=== PATIENT | female | born 1970 | race Caucasian/White ===

== ENCOUNTER 2022-12-03 11:15 | Outpatient (CLI) | payer BC, MEDICAID, SELFPAY ==
--- NOTE | 2022-12-03 11:28 | MM_ITS ---
WS: [id number] BILATERAL 3D TOMOSYNTHESIS DIGITAL SCREENING MAMMOGRAPHY WITH CAD CLINICAL INFORMATION: SCREENING HISTORY: Screening mammogram. No current complaints. COMPARISON: Baseline TECHNIQUE: Bilateral CC and MLO views. FINDINGS: Scattered fibroglandular densities bilaterally. Nodularity deep to the LEFT areola along the posterio r nipple line measuring 3 to 4 mm. Recommend LEFT diagnostic mammography and ultrasound for further e valuation. RIGHT breast is unremarkable. MM/[place] [id number] IMPRESSION: BI-RADS: 0-Incomplete: Need additional imaging evaluation FOLLOW UP: Need Additional Imaging Recommend LEFT diagnostic mammography and ultrasound for further evaluation.
== END 2022-12-03 11:16 | disposition home or self-care (01) ==
PROVIDERS: Family Provider Obstetrics & Gynecology; PCP Obstetrics & Gynecology; Visit Provider Family Medicine
DX: Z12.31 Encounter for screening mammogram for malignant neoplasm of breast (principal)
CPT/HCPCS: 77063; 77067

== ENCOUNTER 2022-12-29 14:51 | Outpatient (CLI) | payer BC, MEDICAID, SELFPAY ==
--- NOTE | 2022-12-29 14:56 | MM_ITS ---
WS: [id number] LEFT 3D TOMOSYNTHESIS DIGITAL MAMMOGRAPHY WITH CAD CLINICAL INFORMATION: ABNORMAL MAMMO HISTORY: Additional views COMPARISON: 12/03/2022 TECHNIQUE: 3 views of the left breast were obtained. FINDINGS: Scattered fibroglandular densities of the left breast. Previously described tiny nodular density emiliana g the posterior nipple line resolves today on the spot compression views. No new abnormalities. No suspicious focal mass, asymmetry, calcifications, or architectural distortion. No evidence of osvaldo gnancy. Recommend return to annual screening mammography IMPRESSION: MM/[place] [id number] BI-RADS: 2-Benign FOLLOW UP: 1 Year Follow-up Recommend return to annual screening mammography.
== END 2022-12-29 14:52 | disposition home or self-care (01) ==
PROVIDERS: PCP Family Medicine; Visit Provider Family Medicine
DX: R92.8 Other abnormal and inconclusive findings on diagnostic imaging of breast (principal)
CPT/HCPCS: 77061; G0279

== ENCOUNTER → 2023-03-03 17:32 | Outpatient (BNVA) | payer BC, MEDICAID, SELFPAY | PROVIDERS: PCP Family Medicine; Visit Provider Nurse Practitioner | DX: R39.9 Unspecified symptoms and signs involving the genitourinary system (principal); N30.01 Acute cystitis with hematuria | CPT/HCPCS: 81000 ==

== ENCOUNTER 2023-07-11 15:58 | Emergency (ER) | payer BC, MEDICAID, SELFPAY ==
[2023-07-11 16:04] VITALS: BP 135/80; PULSE 97; RESP 17; TEMP 36.5; O2SAT 98; BMI 39.1
--- NOTE | 2023-07-11 17:45 | USR_ITS ---
PROCEDURE INFORMATION: Exam: US Duplex Right Lower Extremity Veins, Limited Exam date and time: 07/11/2023 5:43 PM Age: 52 years old Clinical indication: Pain; Leg, lower; Right; Additional info: Pain swelling TECHNIQUE: Imaging protocol: Real-time duplex ultrasound of the right extremity with 2-D leonardo scale, color Doppler flow and spectral waveform analysis including responses to compression and other maneuvers (when performed) with image documentation. Limited exam was focused on the right lower extremity veins. COMPARISON: No relevant prior studies available. FINDINGS: Right deep veins: Heterogeneous, nearly occlusive to occlusive thrombus in the popliteal and peroneal veins. The common femoral, femoral, proximal profunda femoral and posterior tibial veins are patent without thrombus. Superficial veins: Greater saphenous vein at the saphenofemoral junction is patent without thrombus. Soft tissues: Unremarkable. US/[place] [id number] IMPRESSION: Heterogeneous, nearly occlusive to occlusive thrombus in the popliteal and peroneal veins.
[2023-07-11 18:39] VITALS: BP 129/73; PULSE 88; O2SAT 97
[2023-07-11] MEDS: apixaban 5 mg Tablet 10 MG PO (19:30)
[2023-07-11 19:33] VITALS: BP 129/73; PULSE 88; RESP 17; TEMP 36.5; O2SAT 97
--- NOTE | 2023-07-11 20:10 | W.ED.EXTPRO ---
Documented by User: HORTENCIA Sauer 07/11/23 20:20 HPI - Extremity Problem General: Chief complaint: Extremity Problem,Nontraumatic Stated complaint: Right leg swelling, tenderness Time Seen by Provider: 07/11/23 18:45 Source: patient Mode of arrival: ambulatory Limitations: no limitations History of Present Illness: Patient is a 52-year-old female presents the emergency department complaining of right lower extremity pain onset 1 day. 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 She reports throbbing and tenderness to the right lower extremity. It is made walking difficult for her. She reports that for the past 2 weeks she has not been very ambulatory due to a COVID infection, as well as being tired from caring for a family member. She reports a history of DVT/PE requiring anticoagulation back in 2011, which she says was due to an oral contraceptive. Currently, she denies any breathing difficulties, palpitations, dizziness or lightheadedness, and states that she feels nothing like she did when she had her PE. She denies any blood disorder such as factor V or protein C/S deficiencies and states that she has had this worked up before. Associated symptoms: Deny chest pain, fever(s) or rash Review of Systems General: Reports: 10 or more systems reviewed and unremarkable except in HPI and below Const: Denies: fever(s), chills or fatigue Eyes: Denies: change in vision ENMT: Denies: throat pain, ear or mastoid pain or nasal discharge Card: Denies: chest pain, palpitations, irregular heart rhythm, swelling of feet/ankles or lightheadedness Resp: Denies: dyspnea, productive cough or wheezing GI: Denies: abdominal pain, nausea, vomiting, diarrhea or constipation : Denies: flank pain, difficulty voiding, dysuria or urinary frequency Musc: Reports: extremity pain (RLE) and extremity swelling (RLE); Denies: neck pain, back pain or joint pain Skin/Breast: Denies: rash Neuro: Denies: headache(s), numbness in extremities or weakness in extremities Physical Exam Const: COMMON NORMALS: no acute distress, patient oriented x3 and no limitations GENERAL APPEARANCE: cooperative, comfortable and well developed ORIENTATION/CONSCIOUSNESS: Yes awake, Yes oriented to person, Yes oriented to place and Yes oriented to time HENMT: COMMON NORMALS: normocephalic, atraumatic and hearing grossly normal bilaterally HEAD & SCALP: normocephalic and atraumatic Eye: COMMON NORMALS: Equal, round and reactive pupils present, EOMs intact bilaterally and conjunctivae normal CONJUNCTIVA: Yes conjunctivae normal PUPIL: Yes Equal, round and reactive pupils present Neck/C-Spine: COMMON NORMALS: full ROM, supple and no JVD Resp: COMMON NORMALS: normal respiratory effort, No retractions, No use of accessory muscles and clear to auscultation bilaterally AUSCULTATION: clear to auscultation bilaterally OTHER: Lung sounds are clear and symmetrical throughout all conte. Cardio: COMMON NORMALS: no JVD, regular rate, regular rhythm, No clicks present (Cardio), No murmurs present (Cardio) and No rub (Cardio) RATE: regular rate RHYTHM: regular rhythm GI: COMMON NORMALS: Normal to inspection, nondistended, normoactive bowel sounds present, Soft to palpation and non-tender AUSCULTATION: Yes normoactive bowel sounds PALPATION: Yes Soft to palpation RECTAL EXAM: deferred Extremity: COMMON NORMALS: normal to inspection, full ROM and capillary refill normal OTHER: Right lower extremity is mildly swollen and tender to the touch at the posterior aspect of the right calf. Positive Homans' sign. No palpable cord noted at the popliteal fossa. Dorsalis pedis and posterior tibial pulses are present. Neuro: COMMON NORMALS: patient oriented x3, moves all extremities, no focal motor deficits and no sensory deficits noted SENSORIUM/ORIENTATION: Yes oriented to person, Yes oriented to place and Yes oriented to time Psych: COMMON NORMALS: mental status grossly normal and Normal thought process present THOUGHT PROCESS: Normal thought process present Skin: COMMON NORMALS: no rashes or lesions noted GENERAL SKIN EXAM: no rashes or lesions noted Course Vital Signs: Vital signs: Vital Signs Temperature 97.7 F 07/11/23 19:33 Pulse Rate 88 07/11/23 19:33 Respiratory Rate 17 07/11/23 19:33 Blood Pressure 129/73 07/11/23 19:33 Pulse Oximetry 97 07/11/23 19:33 Oxygen Delivery Me thod Room Air 07/11/23 18:39 MDM - Extremity (Nontraumatic) Medical Decision Making This patient was seen and evaluated in the emergency room today for 1 day of right lower extremity swelling and pain. Patient compares the pain to that of a DVT which she had back in 2011. This also resulted in a pulmonary embolus at that time, however patient is not exhibiting any of the respiratory symptoms that she was at that time. Patient's vitals are normal, including normal heart rate, normal blood pressure, and O2 saturation of 100% upon examination in the room. Patient has been sedentary for the past couple of weeks due to a COVID infection, states that her prior DVT was due to an oral contraceptive. She is not currently on any blood thinners. Patient further denies any heart racing, painful respirations, dizziness or lightheadedness, or any other concerning symptoms for PE. Duplex ultrasound right lower extremity demonstrated occlusions in the popliteal and peroneal veins. Examination of peripheral pulses showed symmetrical DP/PT pulses. Due to the findings of ultrasound, and lack of clinical findings suspicious for PE, I believe patient can begin treatment with Eliquis, beginning with 10 mg twice a day for the first week and 5 mg twice a day thereafter. Patient will follow-up with her primary care provider to continue treatment. I discussed this plan with the patient and she agrees. Patient discharged home without any activity restrictions. Medical Records I reviewed the patient's medical records. Lab Data Radiology Impressions Venous Duplex 07/11/23 17:45 IMPRESSION: Heterogeneous, nearly occlusive to occlusive thrombus in the popliteal and peroneal veins. ADDENDUM: 07/11/231930 ADDENDUM: THIS REPORT CONTAINS FINDINGS THAT MAY BE CRITICAL TO PATIENT CARE. The findings were verbally communicated via telephone conference with HORTENCIA Berrios at 7:29 PM LINE DEPARTMENT SUPERVISOR on 07/11/2023. The findings were acknowledged and understood. All radiology interpretation(s) finalized by discharge Discharge Plan Discharge Patient Disposition: Home Clinical Impression: Deep vein thrombosis of lower extremity Qualifiers: Affected thrombotic vein of extremity: unspecified vein of extremity Chronicity: acute Laterality: right Qualified Code(s): I82.401 - Acute embolism and thrombosis of unspecified deep veins of right lower extremity Condition: Stable Prescriptions: New Eliquis 5 mg tablet 10 mg PO BID 21 Days Qty: 84 0RF Rx Instructions: Take 10mg (2 tabs) PO BID for 7 days, then take 5mg (1 tab) thereafter PO BID No Action escitalopram oxalate [Lexapro] 10 mg tablet 10 mg PO DAILY hydroxyzine HCl 10 mg tablet 10 mg PO TID PRN nitrofurantoin monohyd/m-cryst [Macrobid] 100 mg capsule 100 mg PO Q12H 7 Days Qty: 14 0RF Rx Instructions: must administer with a meal/food Discharge Orders: Discharge ED (Routine); Ordered 07/11/23 Ordered By: Milan Berrios Referrals: Nicolle Lemus DO [Primary Care Provider] - Discharge Diet: Usual diet Discharge Activity: Increase activity as tolerated Patient Instructions: Deep Vein Thrombosis Prevention (ED) Activity Restrictions/Additional Instructions: Take Eliquis as directed. 2 tablets twice a day for the first week, then 1 tablet twice a day thereafter. You have been given 3 weeks worth of pills, please follow-up with your primary care provider to extend your prescription. No activity restrictions. If you develop any shortness of breath, palpitations, or feeling that you are going to pass out, please return for further evaluation. Coding Level of Care Code ED Business Banking Manager for Chg Fwd Documented by User: Kike Calvert DO 07/13/23 06:44 HPI - Extremity Problem General: Chief complaint: Extremity Problem,Nontraumatic Stated complaint: Right leg swelling, tenderness Time Seen by Provider: 07/11/23 18:45 Course Vital Signs: Vital signs: Vital Signs Temperature 97.7 F 07/11/23 19:33 Pulse Rate 88 07/11/23 19:33 Respiratory Rate 17 07/11/23 19:33 Blood Pressure 129/73 07/11/23 19:33 Pulse Oximetry 97 07/11/23 19:33 Oxygen Delivery Me thod Room Air 07/11/23 18:39 MDM - Extremity (Nontraumatic) Medical Decision Making This patient was seen and evaluated in the emergency room today for 1 day of right lower extremity swelling and pain. Patient compares the pain to that of a DVT which she had back in 2011. This also resulted in a pulmonary embolus at that time, however patient is not exhibiting any of the respiratory symptoms that she was at that time. Patient's vitals are normal, including normal heart rate, normal blood pressure, and O2 saturation of 100% upon examination in the room. Patient has been sedentary for the past couple of weeks due to a COVID infection, states that her prior DVT was due to an oral contraceptive. She is not currently on any blood thinners. Patient further denies any heart racing, painful respirations, dizziness or lightheadedness, or any other concerning symptoms for PE. Duplex ultrasound right lower extremity demonstrated occlusions in the popliteal and peroneal veins. Examination of peripheral pulses showed symmetrical DP/PT pulses. Due to the findings of ultrasound, and lack of clinical findings suspicious for PE, I believe patient can begin treatment with Eliquis, beginning with 10 mg twice a day for the first week and 5 mg twice a day thereafter. Patient will follow-up with her primary care provider to continue treatment. I discussed this plan with the patient and she agrees. Patient discharged home without any activity restrictions. Chart reviewed and patient discussed with midlevel. Agree with assessment and plan. Lab Data Radiology Impressions Venous Duplex 07/11/23 17:45 IMPRESSION: Heterogeneous, nearly occlusive to occlusive thrombus in the popliteal and peroneal veins. ADDENDUM: 07/11/231930 ADDENDUM: THIS REPORT CONTAINS FINDINGS THAT MAY BE CRITICAL TO PATIENT CARE. The findings were verbally communicated via telephone conference with HORTENCIA Berrios at 7:29 PM LINE DEPARTMENT SUPERVISOR on 07/11/2023. The findings were acknowledged and understood. Discharge Plan Discharge Patient Disposition: Home Clinical Impression: Deep vein thrombosis of lower extremity Qualifiers: Affected thrombotic vein of extremity: unspecified vein of extremity Chronicity: acute Laterality: right Qualified Code(s): I82.401 - Acute embolism and thrombosis of unspecified deep veins of right lower extremity Condition: Stable Prescriptions: New Eliquis 5 mg tablet 10 mg PO BID 21 Days Qty: 84 0RF Rx Instructions: Take 10mg (2 tabs) PO BID for 7 days, then take 5mg (1 tab) thereafter PO BID No Action escitalopram oxalate [Lexapro] 10 mg tablet 10 mg PO DAILY hydroxyzine HCl 10 mg tablet 10 mg PO TID PRN nitrofurantoin monohyd/m-cryst [Macrobid] 100 mg capsule 100 mg PO Q12H 7 Days Qty: 14 0RF Rx Instructions: must administer with a meal/food Discharge Orders: Discharge ED (Routine); Ordered 07/11/23 Ordered By: Milan Berrios Referrals: Nicolle Lemus DO [Primary Care Provider] - Discharge Diet: Usual diet Discharge Activity: Increase activity as tolerated Patient Instructions: Deep Vein Thrombosis Prevention (ED) Activity Restrictions/Additional Instructions: Take Eliquis as directed. 2 tablets twice a day for the first week, then 1 tablet twice a day thereafter. You have been given 3 weeks worth of pills, please follow-up with your primary care provider to extend your prescription. No activity restrictions. If you develop any shortness of breath, palpitations, or feeling that you are going to pass out, please return for further evaluation. Coding Level of Care Code ED Business Banking Manager for Tj Villarreal
== END 2023-07-11 19:47 | disposition home or self-care (01) ==
PROVIDERS: Emergency Provider Physician Assistant; PCP Family Medicine
DX: I82.401 Acute embolism and thrombosis of unspecified deep veins of right lower extremity (principal)
CPT/HCPCS: 93971; 99284

== ENCOUNTER 2023-08-05 14:30 | Oncology outpatient (recurring) (ONCR) | payer BC, MEDICAID, SELFPAY ==
[2023-08-05 15:52] LABS: Basophils # 0.1 10^3/uL (0.0-0.1); Basophils % 0.9 %; Eosinophils # 0.1 10^3/uL (0.0-0.8); Eosinophils % 1.8 %; Hematocrit 41.1 % (36-47); Lymphocytes # 2.3 10^3/uL (0.8-4.8); Lymphocytes % 29.4 %; Mean Corpuscular HGB Conc 33.1 g/dL (30-55); Mean Corpuscular Hemoglobin 28.9 pg (27-33); Mean Corpuscular Volume 87.3 fl (85-98); Mean Platelet Volume 9.5 fL (7.4-10.4); Monocytes # 0.4 10^3/uL (0.2-0.9); Monocytes % 5.7 %; Neutrophils # 4.74 10^3/uL (1.8-7.7); Neutrophils % 61.9 %; Nucleated Red Blood Cells % 0 %; Platelet Count 259 10^3/cmm (157-399); Red Blood Count 4.71 10^6/uL (3.85-5.65); Red Cell Distribution Width 12.5 % (12.1-15.1); White Blood Count 7.66 10^3/uL (3.29-11.43)
[2023-08-05 16:15] LABS: Alanine Aminotransferase 32 U/L (0-33); Albumin Level 4.1 g/dL (3.5-5.2); Alkaline Phosphatase 71 U/L (35-105); Anion Gap 15.1 (5-19); Blood Urea Nitrogen 11 mg/dL (6-20); Calcium 9.3 mg/dL (8.5-10.5); Carbon Dioxide 24 mmol/L (22-29); Chloride 105 mmol/L (98-107); Creatinine Clr Calc Pharmacy 142.5342; Globulin 3.5 g/dL (1.3-4.6); Glucose 130 mg/dL (65-115); Osmolality Calculated 291 mOsm/kg (285-295); Potassium 4.1 mmol/L (3.5-5.1); Sodium 140 mmol/L (136-145); Total Bilirubin 0.3 mg/dL (0.15-1.2); Total Protein 7.6 g/dL (6.6-8.7)
[2023-08-05 16:21] LABS: INR 1.03 (0.8-1.2)
[2023-08-05 16:22] LABS: Aspartate Amino Transferase 26 U/L (0-32); Partial Thromboplastin Time 27.5 SECONDS (23.9-36.7)
[2023-08-05 16:25] LABS: D Dimer 0.47 ug/mLFEU (0-0.59)
[2023-08-12 00:01] LABS: Factor 5 Leiden Mutation NEGATIVE
[2023-08-12 02:41] LABS: PROTHROMBIN (FACTOR II) 20210G NEGATIVE
== END 2023-08-09 23:59 | disposition home or self-care (01) ==
PROVIDERS: PCP Family Medicine; Visit Provider Internal Medicine
DX: I82.409 Acute embolism and thrombosis of unspecified deep veins of unspecified lower extremity (principal)
CPT/HCPCS: 36415; 80053; 81241; 85025; 85210; 85378; 85610; 85730

== ENCOUNTER 2023-11-03 12:49 | Oncology outpatient (recurring) (ONCR) | payer BC, MEDICAID, SELFPAY ==
[2023-11-03 13:23] LABS: Basophils # 0.1 10^3/uL (0.0-0.1); Basophils % 0.7 %; Eosinophils # 0.2 10^3/uL (0.0-0.8); Eosinophils % 2.3 %; Hematocrit 42.5 % (36-47); Lymphocytes % 29.7 %; Mean Corpuscular HGB Conc 33.2 g/dL (30-55); Mean Corpuscular Hemoglobin 28.9 pg (27-33); Mean Corpuscular Volume 87.1 fl (85-98); Mean Platelet Volume 9.4 fL (7.4-10.4); Monocytes # 0.4 10^3/uL (0.2-0.9); Monocytes % 5.4 %; Neutrophils # 4.22 10^3/uL (1.8-7.7); Neutrophils % 61.6 %; Nucleated Red Blood Cells % 0 %; Platelet Count 267 10^3/cmm (157-399); Red Blood Count 4.88 10^6/uL (3.85-5.65); Red Cell Distribution Width 12.3 % (12.1-15.1); White Blood Count 6.86 10^3/uL (3.29-11.43)
[2023-11-03 13:50] LABS: Alanine Aminotransferase 31 U/L (0-33); Alkaline Phosphatase 72 U/L (35-105); Anion Gap 15.3 (5-19); Aspartate Amino Transferase 22 U/L (0-32); Blood Urea Nitrogen 11 mg/dL (6-20); Calcium 9.2 mg/dL (8.5-10.5); Carbon Dioxide 24 mmol/L (22-29); Chloride 107 mmol/L (98-107); Globulin 3.5 g/dL (1.3-4.6); Glomerular Filtration Rate 87.9 mL/min (90-130); Glucose 110 mg/dL (65-115); Osmolality Calculated 292 mOsm/kg (285-295); Potassium 5.3 mmol/L (3.5-5.1); Sodium 141 mmol/L (136-145); Total Bilirubin 0.4 mg/dL (0.15-1.2); Total Protein 7.5 g/dL (6.6-8.7)
[2023-11-03 13:53] LABS: D Dimer 0.38 ug/mLFEU (0-0.59)
== END 2023-11-08 23:59 | disposition home or self-care (01) ==
PROVIDERS: Internal Medicine; PCP Family Medicine; Visit Provider Nurse Practitioner Family
DX: I82.621 Acute embolism and thrombosis of deep veins of right upper extremity (principal)
CPT/HCPCS: 36415; 80053; 85025; 85378

== ENCOUNTER 2023-11-27 13:42 | Outpatient (CLI) | payer BC, MEDICAID, SELFPAY ==
--- NOTE | 2023-11-27 14:00 | USCV_ITS ---
Sydnee Marcos Age: 52 Gender: F : 1970 Exam Date: 11/27/2023 14:30 Ordering Phys: Jo-Ann Booker APRN Technologist: CT Exam Location: [facility] – [place] Indication: hx of dvt PROCEDURES: Venous duplex imaging was performed in only the right lower extremity. On the right side, the common femoral, superficial femoral, profunda femoral, popliteal, posterior tibial, greater saphenous veins and the peroneal trunk were identified and interrogated in the standard fashion. These veins were found to be easily compressible with spontaneous blood flow. No evidence of insufficiency or thrombus noted. FINDINGS: no dvt CONCLUSIONS No evidence of right lower extremity DVT. Cristóbal Murphy MD (Electronically Signed) Final Date: 27 November 2023 16:47 S
== END 2023-11-27 13:43 | disposition home or self-care (01) ==
LOC: RAD 13:43
PROVIDERS: PCP Family Medicine; Visit Provider Nurse Practitioner Family
DX: I82.401 Acute embolism and thrombosis of unspecified deep veins of right lower extremity (principal); Z86.718 Personal history of other venous thrombosis and embolism
CPT/HCPCS: 93971

== ENCOUNTER 2023-12-08 10:49 | Oncology outpatient (recurring) (ONCR) | payer BC, MEDICAID, SELFPAY ==
[2023-12-08 11:36] LABS: Anion Gap 16.3 (5-19); Blood Urea Nitrogen 11 mg/dL (6-20); Calcium 8.9 mg/dL (8.5-10.5); Carbon Dioxide 22 mmol/L (22-29); Chloride 107 mmol/L (98-107); Glomerular Filtration Rate 87.9 mL/min (90-130); Glucose 108 mg/dL (65-115); Osmolality Calculated 292 mOsm/kg (285-295); Potassium 4.3 mmol/L (3.5-5.1); Sodium 141 mmol/L (136-145)
== END 2023-12-09 23:59 | disposition home or self-care (01) ==
PROVIDERS: PCP Family Medicine; Visit Provider Nurse Practitioner Family
DX: E87.5 Hyperkalemia (principal)
CPT/HCPCS: 36415; 80048

== ENCOUNTER 2024-02-02 10:10 | Oncology outpatient (recurring) (ONCR) | payer BC, MEDICAID, SELFPAY ==
[2024-02-02 10:49] LABS: Basophils # 0.1 10^3/uL (0.0-0.1); Eosinophils # 0.2 10^3/uL (0.0-0.8); Eosinophils % 2.7 %; Hematocrit 42.8 % (36-47); Lymphocytes # 1.8 10^3/uL (0.8-4.8); Lymphocytes % 30.5 %; Mean Corpuscular HGB Conc 33.2 g/dL (30-55); Mean Corpuscular Hemoglobin 29.2 pg (27-33); Mean Corpuscular Volume 87.9 fl (85-98); Mean Platelet Volume 9.5 fL (7.4-10.4); Monocytes # 0.3 10^3/uL (0.2-0.9); Monocytes % 5.3 %; Neutrophils # 3.53 10^3/uL (1.8-7.7); Neutrophils % 60.3 %; Nucleated Red Blood Cells % 0 %; Platelet Count 236 10^3/cmm (157-399); Red Blood Count 4.87 10^6/uL (3.85-5.65); Red Cell Distribution Width 12.3 % (12.1-15.1); White Blood Count 5.86 10^3/uL (3.29-11.43)
[2024-02-02 11:10] LABS: Alanine Aminotransferase 32 U/L (0-33); Albumin Level 3.9 g/dL (3.5-5.2); Alkaline Phosphatase 74 U/L (35-105); Blood Urea Nitrogen 12 mg/dL (6-20); Carbon Dioxide 24 mmol/L (22-29); Chloride 104 mmol/L (98-107); Globulin 3.3 g/dL (1.3-4.6); Glomerular Filtration Rate 87.5 mL/min (90-130); Glucose 108 mg/dL (65-115); Osmolality Calculated 286 mOsm/kg (285-295); Sodium 138 mmol/L (136-145); Total Bilirubin 0.4 mg/dL (0.15-1.2); Total Protein 7.2 g/dL (6.6-8.7)
[2024-02-02 11:18] LABS: Anion Gap 14.2 (5-19); Aspartate Amino Transferase 24 U/L (0-32); Potassium 4.2 mmol/L (3.5-5.1)
== END 2024-02-08 23:59 | disposition home or self-care (01) ==
LOC: ONCMED 10:11
PROVIDERS: PCP Family Medicine; Visit Provider Nurse Practitioner Family
DX: I82.401 Acute embolism and thrombosis of unspecified deep veins of right lower extremity (principal)
CPT/HCPCS: 36415; 80053; 85025

== ENCOUNTER 2024-03-21 15:15 | Outpatient (CLI) | payer BC, MEDICAID, SELFPAY ==
--- NOTE | 2024-03-21 15:19 | MM_ITS ---
WS: [id number] BILATERAL 3D TOMOSYNTHESIS DIGITAL SCREENING MAMMOGRAPHY WITH CAD CLINICAL INFORMATION: SCREENING HISTORY: Screening mammogram. No current complaints. COMPARISON: 2022 TECHNIQUE: Bilateral CC and MLO views. FINDINGS: Scattered fibroglandular densities bilaterally. No suspicious focal mass, asymmetry, calcifications, or architectural distortion. No evidence of malignancy. MM/MM scr BI tomosynthesis [id number] IMPRESSION: DENSITY: There are scattered areas of fibroglandular density. BI-RADS: 1 - Negative. FOLLOW UP: 1 Year Follow-up Recommend return to annual screening mammography.
== END 2024-03-21 15:16 | disposition home or self-care (01) ==
LOC: RAD 15:16
PROVIDERS: PCP Family Medicine; Visit Provider Family Medicine
DX: Z12.31 Encounter for screening mammogram for malignant neoplasm of breast (principal)
CPT/HCPCS: 77063; 77067

== ENCOUNTER 2024-05-05 10:19 | Day surgery (SDC) | payer BC, MEDICAID, SELFPAY ==
[2024-05-05 10:57] VITALS: BP 128/85; PULSE 88; RESP 16; TEMP 36.2; O2SAT 95
[2024-05-05] MEDS: sodium chloride 0.9% 500 ML 15 ML IV (11:13)
--- NOTE | 2024-05-05 11:32 | W.PM.OPSFHP ---
Same Day Surgery H&P Indication for Procedure/HPI DATE OF PROCEDURE: May 05, 2024 CHIEF COMPLAINT/INDICATIONFOR SURGICAL PROCEDURE: screening colonoscopy PREOP DIAGNOSIS: screening colonoscopy PLANNED PROCEDURE: Operation Date: 05/05/24 11:30 Proposed Procedures p Colonoscopy- 47535, G0121, Z12.11(Not Applicable) - Omar Allen MD Medications/Allergies* Home Medications Medication Instructions Recorded Confirmed Type escitalopram oxalate 10 mg tablet 10 mg PO DAILY 03/03/23 05/05/24 History (Lexapro) hydroxyzine HCl 10 mg tablet 10 mg PO TID 03/03/23 05/05/24 History cholecalciferol (vitamin D3) 50 50 mcg PO DAILY 08/05/23 05/05/24 History mcg (2,000 unit) capsule loratadine 10 mg tablet (Allergy 10 mg PO ONCE PRN allergies 08/05/23 05/05/24 History Relief (loratadine)) magnesium 200 mg tablet 200 mg PO DAILY 08/05/23 05/05/24 History mecobalamin (vitamin B12) 1,000 1,000 mcg PO DAILY 08/05/23 05/05/24 History mcg lozenges Allergies/Adverse Reactions Allergy/AdvReac Type Severity Reaction Status Date / Time Estrogens Allergy Multiple Verified 03/10/24 14:43 DVT and PE estrogens, conjugated Allergy Multiple Verified 03/10/24 14:43 DVT and PE Current Medications: Generic Name Dose Route Start Last Admin Trade Name Freq PRN Reason Stop Dose Admin Sodium Chloride 500 mls @ 15 mls/hr 05/05/24 10:26 05/05/24 11:13 Sodium Chloride 0.9% IV 05/06/24 10:25 15 mls/hr .Q24H PRN Administration COLONOSCOPY FLUIDS Pertinent History/Comorbid Conditions* Medical History (Updated 11/03/23 @ 14:58 by J-oAnn Booker APRN) Right leg DVT Surgical History (Updated 02/02/24 @ 12:42 by Shahana Chan APRN) History of appendectomy Family History (Updated 03/10/24 @ 14:54 by BARBRA Forrester) Cancer Father lung Social History Smoking and tobacco/nicotine status: never used tobacco/nicotine Pertinent Exam Findings alert, oriented x 3, clear to auscultation bilaterally, regular rate & rhythm and procedure specific exam findings abdomen soft, nt, nd Recommendations Surgery/Procedure today Coding Level of Care Code Acute Code for Chg Fwd
[2024-05-05 11:58] VITALS: BP 106/50; PULSE 82; RESP 16; TEMP 36.2; O2SAT 94
[2024-05-05 12:13] VITALS: BP 100/77; PULSE 73; RESP 16; O2SAT 96
--- NOTE | 2024-05-05 12:47 | ANE.PACU2 ---
Inpatient post-anesthesia follow up: Airway intact: Yes Vital signs: Temperature 97.2 F Pulse Rate 73 Respiratory Rate 16 Blood Pressure 100/77 Pulse Oximetry 96 Oxygen Delivery Me thod Room Air Oxygen Flow Rate Fraction of Inspir ed Oxygen Hydration adequate: Yes Nausea and vomiting: No Pain level: 1 Mental status: Baseline
== END 2024-05-05 12:47 | disposition home or self-care (01) ==
PROVIDERS: PCP Family Medicine; Visit Provider Student in an Organized Health Care Education/Training Program
PROC: 0DJD8ZZ Inspection of Lower Intestinal Tract, Via Natural or Artificial Opening Endoscopic (ICD-10-PCS; CPT 45378; principal; 2024-05-05 11:30)
DX: Z12.11 Encounter for screening for malignant neoplasm of colon (principal); K57.30 Diverticulosis of large intestine without perforation or abscess without bleeding; Z86.718 Personal history of other venous thrombosis and embolism
CPT/HCPCS: 45378; J2704; J7040

== ENCOUNTER 2025-03-22 09:15 | Outpatient (CLI) | payer BC, MEDICAID, SELFPAY ==
--- NOTE | 2025-03-22 09:23 | MM_ITS ---
WS: [id number] BILATERAL SCREENING DIGITAL TOMOSYNTHESIS MAMMOGRAM WITH CAD HISTORY: SCREENING COMPARISON: 03/21/2024, 12/03/2022 Bilateral CC and MLO views with tomosynthesis and synthetic mammography submitted. Computer aided detection analyzed. Breast composition: The breasts are almost entirely fatty. No suspicious masses, microcalcifications or architectural distortion. MM/MM scr BI tomosynthesis [id number] IMPRESSION: BI-RADS: 1 - Negative. FOLLOW UP: 1 Year Follow-up
== END 2025-03-22 09:16 | disposition home or self-care (01) ==
LOC: RAD 09:16
PROVIDERS: PCP Family Medicine; Visit Provider Family Medicine
DX: Z12.31 Encounter for screening mammogram for malignant neoplasm of breast (principal); R92.313 Mammographic fatty tissue density, bilateral breasts
CPT/HCPCS: 77063; 77067